=== PATIENT | female | born 1940 | race Caucasian/White ===

== ENCOUNTER 2017-07-29 07:58 | Emergency (ER) | payer OTHER, MEDICAID ==
[~2017-07-29] VITALS: Ht 165.1 cm; Wt 47.6 kg
[~2017-07-29 07:58] MED LIST: CHOLESTEROL MED; LEVOTHYROXINE; NAPROXEN; VICODIN; XANAX
[2017-07-29 08:29] LABS: Basophils # (auto) 0.1 uL; Eosinophils # (auto) 0.2 uL; Hemoglobin 10.3 g/dL (12.2-16.2); Lymphocytes # (auto) 1.4 uL; Mean Corpuscular Hemoglobin 28.4 pg (28.0-32.0); Monocytes # (auto) 1.3 uL; Red Cell Distribution Width 15.9 % (11.8-14.3)
[2017-07-29 08:31] LABS: Basophils % (auto) 0.5 % (0.0-2.0); Hematocrit 31.6 % (36.0-46.0); Lymphocytes % (auto) 12.1 % (10.0-50.0); Mean Corpuscular Hgb Conc. 32.8 g/dL (32.0-36.0); Mean Corpuscular Volume 86.8 fL (80.0-100.0); Monocytes % (auto) 11.2 % (0.0-12.0); Neutrophils # (auto) 8.4 uL; Neutrophils % (auto) 74.2 % (37.0-80.0); Nucleated Red Blood Cells % 0.1 %; Platelet Count (auto) 658 10^3/uL (140-450); Red Blood Cells 3.64 10^6/uL (4.0-5.20); White Blood Cell 11.4 10^3/uL (4.4-10.8)
[2017-07-29 08:48] LABS: Albumin 1.8 g/dL (3.4-5.0); BUN/Creatinine Ratio 18.8; Calcium 9.1 mg/dL (8.5-10.1); Potassium 3.4 mmol/L (3.5-5.1)
[2017-07-29 08:50] LABS: Total Protein 8.2 g/dL (6.4-8.2)
[2017-07-29 12:51] LABS: Bilirubin, Total 0.3 mg/dL (0.2-1.0)
[2017-07-29] MEDS ORDERED: POTASSIUM CHL 10% (20 MEQ/15ML) 15ml ORAL SOLN PO ONE (15:00)
[2017-07-29 16:37] VITALS: BP 112/62
== END 2017-07-29 16:47 | disposition home or self-care (01) ==
LOC: ER 07:58
DX: M79.604 Pain in right leg (principal); M66.0 Rupture of popliteal cyst; M81.0 Age-related osteoporosis without current pathological fracture; E87.6 Hypokalemia; E43 Unspecified severe protein-calorie malnutrition; E87.1 Hypo-osmolality and hyponatremia; F17.210 Nicotine dependence, cigarettes, uncomplicated; Z87.11 Personal history of peptic ulcer disease; Z90.710 Acquired absence of both cervix and uterus; Z88.6 Allergy status to analgesic agent
CPT/HCPCS: 36415; 80053; 85025; 93971